=== PATIENT | female | born 1970 | race Caucasian/White ===

== ENCOUNTER → 2017-07-01 | Outpatient (CLI) | payer BC ==
--- NOTE | 2017-07-03 09:47 | Diagnostic Imaging Report ---
EXAMINATION: Bilateral screening mammogram 2D views with tomosynthesis. The current study was also evaluated with a Computer Aided Detection (CAD) system. INDICATION: Screening. PERSONAL HISTORY: No current complaints stated on the questionnaire. COMPARISON: 09/09/2015. FINDINGS: The breasts are composed of heterogeneously dense parenchyma which may decrease mammographic sensitivity. Allowing for technique and positional differences, no suspicious change is seen. IMPRESSION: Dense breasts with no definite change. ACR BI-RADS Category 2: Benign findings. Result letter will be mailed to the patient. Note: At least 10% of breast cancer is not imaged by mammography. Dictated by: Dictated on workstation # [id number]
== END ==
LOC: RAD 15:20
PROVIDERS: ATTEND Family Medicine
DX: Z12.31 Encounter for screening mammogram for malignant neoplasm of breast (principal)
CPT/HCPCS: 77067

== ENCOUNTER → 2018-07-10 | Outpatient (CLI) | payer BC ==
--- NOTE | 2018-07-10 11:04 | Diagnostic Imaging Report ---
Indication: Routine screening. Comparison is made with prior mammogram from 07/01/2017 and 09/09/2015. 2-D and 3-D bilateral screening mammography was performed with CAD. Both breasts are heterogeneously dense, limiting the sensitivity of mammography. There is some density in the posterior left breast at the nipple line on MLO view. Additional views of this area are recommended. This may represent summation. No malignant-appearing microcalcifications are seen. The right breast is unremarkable. The axillae are unremarkable. Impression: BI-RADS 0 Left breast density. Additional views including spot compression and MLO views are recommended for further evaluation. ACR BI-RADS Category 0: Incomplete. (Needs additional imaging evaluation). Result letter will be mailed to the patient. Note: At least 10% of breast cancer is not imaged by mammography. Dictated by: Dictated on workstation # [id number]
== END ==
LOC: RAD 08:06
PROVIDERS: ATTEND Family Medicine
DX: Z12.31 Encounter for screening mammogram for malignant neoplasm of breast (principal); R92.8 Other abnormal and inconclusive findings on diagnostic imaging of breast
CPT/HCPCS: 77067

== ENCOUNTER → 2018-07-28 | Outpatient (CLI) | payer BC ==
--- NOTE | 2018-07-28 22:35 | Diagnostic Imaging Report ---
INDICATION: Left breast density. Patient presents for additional views. Correlation is made with recent screening mammogram from 07/10/2018. The current study was also evaluated with a Computer Aided Detection (CAD) system. FINDINGS: Unilateral left 2-D and 3-D diagnostic mammography was performed including spot compression MLO and conventional 90 degree lateral view. Left breast is heterogeneously dense. Area of density noted on the screening MLO view appears to resolve with additional views and most likely represented superimposed tissue. No underlying mass or suspicious calcifications are seen. IMPRESSION: Additional views fail to demonstrate a discrete mass. The patient may return to routine annual screening mammography. ACR BI-RADS Category 1: Negative. Result letter will be mailed to the patient. Note: At least 10% of breast cancer is not imaged by mammography. Dictated by: Dictated on workstation # [id number]
== END ==
LOC: RAD 13:25
PROVIDERS: ATTEND Family Medicine
DX: R92.2 Inconclusive mammogram (principal)

== ENCOUNTER → 2019-07-13 | Outpatient (CLI) | payer BC ==
--- NOTE | 2019-07-13 12:13 | Diagnostic Imaging Report ---
INDICATION: Routine screening. COMPARISON: 07/10/2018 and 07/01/2017. TECHNIQUE: 2D and 3D bilateral screening mammography was performed with CAD. FINDINGS: Both breasts are heterogeneously dense, limiting the sensitivity of mammography. The parenchymal pattern is stable. No mass or malignant appearing microcalcifications are seen. The axillae are unremarkable. IMPRESSION: No mammographic features suspicious for malignancy are identified. ACR BI-RADS Category 1: Negative. Result letter will be mailed to the patient. Note: At least 10% of breast cancer is not imaged by mammography. Dictated by: Dictated on workstation # [id number]
== END ==
LOC: RAD 08:30
PROVIDERS: ATTEND Family Medicine
DX: Z12.31 Encounter for screening mammogram for malignant neoplasm of breast (principal)
CPT/HCPCS: 77067

== ENCOUNTER → 2020-07-25 | Outpatient (CLI) | payer BC ==
--- NOTE | 2020-07-25 20:01 | Diagnostic Imaging Report ---
Digital mammogram bilateral screening This study was compared to the prior exams of 07/13/2019, 07/10/2018, and 07/01/2017. At this time, there are no current complaints. The current study was also evaluated with a Computer Aided Detection (CAD) system. FINDINGS: The fibroglandular tissue in both breasts is heterogeneously dense. This does limit the sensitivity of this exam. Overall, there does not appear to have been any significant change when compared to the prior study. No primary or secondary sign of malignancy is noted. IMPRESSION: There is no radiographic evidence for malignancy. ACR BI-RADS Category 1: Negative. Result letter will be mailed to the patient. Note: At least 10% of breast cancer is not imaged by mammography. Dictated by: Dictated on workstation # [id number]
== END ==
LOC: RAD 08:45
PROVIDERS: ATTEND Family Medicine
DX: Z12.31 Encounter for screening mammogram for malignant neoplasm of breast (principal)
CPT/HCPCS: 77063; 77067

== ENCOUNTER → 2021-07-26 | Outpatient (CLI) | payer BC ==
--- NOTE | 2021-07-26 13:13 | Diagnostic Imaging Report ---
Indication: Routine screening. Comparison is made with prior mammogram from 07/25/2020 and 07/13/2019. 2-D and 3-D bilateral screening mammography was performed with CAD. Both breasts are heterogeneously dense, limiting the sensitivity of mammography. The parenchymal pattern is stable. No mass or malignant-appearing microcalcifications are seen. Axillae are unremarkable. IMPRESSION: BI-RADS Category 1 No mammographic features suspicious for malignancy are identified. Dictated by: Dictated on workstation # [id number]
== END ==
LOC: RAD 09:45
PROVIDERS: ATTEND Family Medicine
DX: Z12.31 Encounter for screening mammogram for malignant neoplasm of breast (principal)
CPT/HCPCS: 77063; 77067

== ENCOUNTER → 2022-08-20 | Outpatient (CLI) | payer BC ==
--- NOTE | 2022-08-20 12:28 | Diagnostic Imaging Report ---
INDICATION: Routine screening. COMPARISON: 07/26/2021 and 07/25/2020. TECHNIQUE: 2D and 3D bilateral screening mammography was performed with CAD. FINDINGS: Both breasts are heterogeneously dense, limiting the sensitivity of mammography. The parenchymal pattern is stable. No mass is identified. No malignant-appearing microcalcifications are seen. The axillae are unremarkable. IMPRESSION: No mammographic features suspicious for malignancy are identified. ACR BI-RADS Category 1: Negative. Result letter will be mailed to the patient. Note: At least 10% of breast cancer is not imaged by mammography. Dictated by: Dictated on workstation # [id number]
== END ==
LOC: RAD 09:15
PROVIDERS: ATTEND Nurse Practitioner Family
DX: Z12.31 Encounter for screening mammogram for malignant neoplasm of breast (principal)
CPT/HCPCS: 77063; 77067

== ENCOUNTER 2023-02-13 05:34 | Outpatient (CLI) | payer BC ==
[~2023-02-13] VITALS: Ht 162.6 cm; Wt 83.6 kg
== END 2023-02-14 10:07 ==
LOC: PREOP 05:34
PROVIDERS: ATTEND Internal Medicine
DX: Z01.818 Encounter for other preprocedural examination (principal)

== ENCOUNTER 2023-02-22 07:28 | Day surgery (SDC) | payer BC ==
--- NOTE | 2023-02-11 09:59 | HISTORY AND PHYSICAL ---
DATE OF SERVICE: 02/22/2023 COLONOSCOPY HISTORY AND PHYSICAL HISTORY OF PRESENT ILLNESS: The patient is a 52-year-old white female referred by Dr. Stoddard for her first screening colonoscopy. She is deemed to be of higher than average risk due to the fact that her brother was recently diagnosed with colon cancer, undergoing a partial colectomy at the age of 58. She was unaware of any other family history for colon cancer or colon polyps. She denies bright red blood per rectum, bowel habit change, abdominal pain, or melena. She denies any issues with heartburn or dysphagia. She did inquire about Cologuard, but considering a brother relatively early age with colon cancer, advised colonoscopy the gold standard with both diagnostic and therapeutic ramifications. PAST MEDICAL HISTORY: Osteoarthritis of the hands that she takes p.r.n. Naprosyn for. She is on no other medication. PAST SURGICAL HISTORY: She has had ACL repair on the right x2 and right shoulder surgery. SOCIAL HISTORY: She is employed with no past smoking history and no significant alcohol consumption history. REVIEW OF SYSTEMS: CONSTITUTIONAL: Denies night sweats, chills, fever, change in weight. PULMONARY: Denies cough, wheezing or shortness of breath. CARDIOVASCULAR: Denies chest discomfort, orthopnea, PND, pedal edema or palpitations. PHYSICAL EXAMINATION: GENERAL: Reveals a pleasant white female who appears to be in no acute distress. VITAL SIGNS: Weight 189, blood pressure 120/84, BMI 32. HEENT: Unremarkable. Sclerae nonicteric. CHEST: Clear. CARDIOVASCULAR: Reveals a regular rate and rhythm without murmur, S3, or S4. ABDOMEN: Soft, supple without mass, organomegaly, or tenderness. EXTREMITIES: Revealed no cyanosis, clubbing or edema. ASSESSMENT AND PLAN: The patient is being set up for her first screening colonoscopy deemed to be of higher than average risk as her brother at the age of 58 was recently diagnosed with colon cancer, reportedly doing well post subtotal colectomy. Prep instructions with Sutab were given and questions were answered. Electronic medical record reviewed. I thank you for referral of this pleasant lady. Job ID: [id number] DocumentID: [id number] Dictated Date: 01/10/2023 16:26:08 Car Rental Deliverer Date: 01/10/2023 16:48:00 Dictated By: MD DUGLAS WORRELL
[~2023-02-22] VITALS: Ht 162.6 cm; Wt 83.6 kg
[2023-02-22] MEDS ORDERED: LACTATED RINGERS 1,000 ML IV STA (07:35)
[2023-02-22] MEDS ORDERED: PROPOFOL INJECTION 50 ML IV ONE ×2 (07:41→08:46)
[2023-02-22 07:50] VITALS: BP 109/67
--- NOTE | 2023-02-22 07:56 | Pre-Op Note & Conscious Sedat ---
Pre-Operative Progress Note Date H&P Reviewed: Feb 22, 2023 Time H&P Reviewed: 07:55 History & Physical: H&P Reviewed, Patient Examed, No changes noted Pre-Op Diagnosis: screening Moderate Sedation PreProcedure ASA Score 2 Airway Lungs Heart ASA score ASA 1: a normal healthy patient ASA 2: a patient with a mild systemic disease (mid diabetes, controlled hypertension, obesity ASA 3: a patient with a severe systemic disease that limits activity (angina, COPD, prior Myocardial infarction) ASA 4: a patient with an incapacitating disease that is a constant threat to life (CHF, renal failure) ASA 5: a moribund patient not expected to survive 24 hrs. (ruptured aneurysm) ASA 6: a declared brain- patient whose organs are being harvested. For emergent operations, add the letter E after the classification Mallampati Classification Grade 1 Sedation Plan Analgesia, Amnesia, Plan communicated to team members, Discussed options with patient/fam, Discussed risks with patient/fam The patient is an appropriate candidate to undergo the planned procedure, sedation, and anesthesia. The patient immediately re-assessed prior to indication. MICHAEL BRADSHAW MD Feb 22, 2023 07:56
[2023-02-22 09:03] VITALS: BP 100/58
--- NOTE | 2023-02-22 09:04 | Anesthesia-General Post-Op ---
MAC Patient Condition Mental Status/LOC: Same as Preop Cardiovascular: Satisfactory Nausea/Vomiting: Absent Respiratory: Satisfactory Pain: Controlled Complications: Absent Post Op Complications Complications None Follow Up Care/Instructions Patient Instructions None needed. Anesthesiology Discharge Order Discharge Order Patient is doing well, no complaints, stable vital signs, no apparent adverse anesthesia problems. No complications reported per nursing. GABRIELA SENIOR CRNA Feb 22, 2023 09:04
[2023-02-22 09:08] VITALS: BP 92/53
[2023-02-22 09:10] VITALS: BP 92/54
--- NOTE | 2023-02-22 09:13 | Progress Note-Post Operative ---
Post-Procedure Note Physician (s)/Air Brake Tester (s) Physician MICHAEL BRADSHAW MD Pre-Procedure Diagnosis Pre-Procedure Diagnosis: screening Post-Procedure Diagnosis Post-operative diagnosis: Prior to undergoing colonoscopy digital rectal evaluation was performed. Anal sphincter tone was normal and the perianal reflexes intact. No abnormalities noted on digital inspection anal canal or distal rectal vault. The colonoscope was then inserted into the rectum and under direct visualization advanced to the cecum. The cecum was identified by identification of the ileocecal valve and cecal strap. Photographic documentation was obtained. Careful inspection was made as the colonoscope withdrawn. Quality the prep was good. Findings there are no evidence for internal or external hemorrhoids. Present the proximal rectum was a diminutive hyperplastic appearing polyp it was biopsied and ablated and submitted for histopathology with hot forceps. The sigmoid colon descending colon and splenic flexure were unremarkable. Present in the mid transverse colon was a 4 mm sessile polyp it was photographed and ablated with hot forceps with no subsequent blood loss. The remainder the transverse colon hepatic flexure ascending colon and cecum were unremarkable. Assessment 2 diminutive polyps removed one from the rectum and one from the transverse colon via hot forceps with an otherwise normal colonoscopy to the cecum under good prep conditions. Considering family history as long as there are no surprises on histopathology report would advocate repeat screening colonoscopy in 5 years. MICHAEL BRADSHAW MD Feb 22, 2023 09:13
== END 2023-02-22 10:00 | disposition home or self-care (01) ==
LOC: ENDO 07:28
PROVIDERS: ATTEND Internal Medicine
DX: Z12.11 Encounter for screening for malignant neoplasm of colon (principal); D12.3 Benign neoplasm of transverse colon; K62.1 Rectal polyp; Z80.0 Family history of malignant neoplasm of digestive organs; M19.042 Primary osteoarthritis, left hand; M19.041 Primary osteoarthritis, right hand